=== PATIENT | female | born 1960 | race Caucasian/White ===

== ENCOUNTER 2021-08-12 13:08 | Emergency (ER) | payer OTHER ==
[2021-08-12] MEDS ORDERED: TYLENOL 325 MG PO ONE (13:37)
[2021-08-12] MEDS ORDERED: TYLENOL 325 MG ONE (13:44)
--- NOTE | 2021-08-12 14:11 | XRAY ---
Indication: Fracture. S/P fall Comparison: None 3 view right knee demonstrates moderate tricompartmental degenerative changes, small nonspecific effusion, and 6 mm anterior patella soft tissue calcified granuloma. No other bony, articular, or soft tissue abnormalities.
--- NOTE | 2021-08-12 14:11 | XRAY ---
Indication: Fracture. S/P fall. Comparison: None 3 view right elbow demonstrates small coronoid process spurring. No other bony, articular, or soft tissue abnormalities.
--- NOTE | 2021-08-12 14:12 | XRAY ---
Indication: Fracture. Status post fall. Comparison: None 3 view left knee demonstrates minimal medial joint space narrowing/spurring and tiny patella spurring. No other bony, articular, or soft tissue abnormalities.
--- NOTE | 2021-08-12 14:32 | ERPHSYRPT ---
- History of Present Illness Time Seen by Provider: 08/12/21 13:20 Source: patient Exam Limitations: no limitations Patient Subjective Stated Complaint: Fall-july knee pain and right elbow pain Triage Nursing Assessment: Patient brought back to ED via EMS and transferred to bed with assist of 4. Patient A+O X3. Patient's skin pink, warm and dry. Patient complains of fall prior to coming into ED. Patient states her feet got caught in a blanket causing her to fall and land on her knees. Patient complains of july knee pain and right elbow pain. Small abrasion noted to right elbow. Physician History: Patient is a 61-year-old female presents to our ED via EMS for evaluation of bilateral knee and right elbow pain. Patient states she was getting up to walk when her legs became entangled in her blanket causing her to fall. The fall was not associated with any neuro or cardiovascular symptomology. No chest pain or shortness of breath. No nausea vomiting or diaphoresis. No numbness tingling or weakness. Patient complains of pain to both knees and right elbow. Pain described as a ache that is constant. Pain improved with rest. No other injuries reported. No BHT or LOC. No neck pain. Cervical spine cleared clinically. Patient states she lives alone however receives home health visitations. Timing/Duration: today Severity: mild Modifying Factors: Improves With: nothing Associated Symptoms: denies symptoms Allergies/Adverse Reactions: No Known Drug Allergies Allergy (Unverified 08/12/21 13:13) Home Medications: Dapagliflozin/Metformin HCl [Xigduo Xr 10 mg-1,000 mg Tab] 1 tab PO DAILY 08/12/21 [History] Hx Influenza Vaccination/Date Given: No Hx Pneumococcal Vaccination/Date Given: No Immunizations Up to Date: Yes Travel Risk - International Travel Have you traveled outside of the country in past 3 weeks: No - Coronavirus Screening Are you exhibiting any of the following symptoms?: No - Vaccine Status Have you recieved a Covid-19 vaccination: No - Review of Systems Constitutional: No Symptoms, No Fever, No Chills Eyes: No Symptoms Ears, Nose, & Throat: No Symptoms Respiratory: No Symptoms, No Cough, No Dyspnea Cardiac: No Symptoms, No Chest Pain, No Edema, No Syncope Abdominal/Gastrointestinal: No Symptoms, No Abdominal Pain, No Nausea, No Vo miting, No Diarrhea Genitourinary Symptoms: No Symptoms, No Dysuria Musculoskeletal: No Symptoms, No Back Pain, No Neck Pain Skin: No Symptoms, No Rash Neurological: No Symptoms, No Dizziness, No Focal Weakness, No Sensory Changes Psychological: No Symptoms Endocrine: No Symptoms Hematologic/Lymphatic: No Symptoms Immunological/Allergic: No Symptoms All Other Systems: Reviewed and Negative - Past Medical History Pertinent Past Medical History: Yes Neurological History: No Pertinent History ENT History: No Pertinent History Cardiac History: Hypertension Respiratory History: No Pertinent History Endocrine Medical History: Diabetes Type II Musculoskeletal History: No Pertinent History GI Medical History: No Pertinent History History: No Pertinent History Psycho-Social History: No Pertinent History Female Reproductive Disorders: No Pertinent History - Past Surgical History Past Surgical History: No Neuro Surgical History: No Pertinent History Cardiac: No Pertinent History Respiratory: No Pertinent History Gastrointestinal: No Pertinent History Genitourinary: No Pertinent History Musculoskeletal: No Pertinent History Female Surgical History: No Pertinent History - Social History Smoking Status: Never smoker Exposure to second hand smoke: No Drug Use: none Patient Lives Alone: Yes - Female History Hx Now: No - Nursing Vital Signs Nursing Vital Signs: Initial Vital Signs Temperature 96.3 F 08/12/21 13:14 Pulse Rate 104 H 08/12/21 13:14 Respiratory Rate 18 08/12/21 13:14 Blood Pressure 100/72 08/12/21 13:14 O2 Sat by Pulse Oximetry 96 08/12/21 13:14 Pain Scale Pain Intensity 9 - Physical Exam General Appearance: no apparent distress, alert Eye Exam: PERRL/EOMI, eyes nml inspection Ears, Nose, Throat Exam: normal ENT inspection, TMs normal, pharynx normal, moist mucous membranes Neck Exam: normal inspection, non-tender, supple, full range of motion Respiratory Exam: normal breath sounds, lungs clear, airway intact, No respiratory distress Cardiovascular Exam: regular rate/rhythm, normal heart sounds, normal peripheral pulses Gastrointestinal/Abdomen Exam: soft, normal bowel sounds, No tenderness, No mass Back Exam: normal inspection, normal range of motion, No CVA tenderness, No vertebral tenderness Extremity Exam: normal inspection, normal range of motion, other (Abrasion to right elbow) Neurologic Exam: alert, oriented x 3, cooperative, normal mood/affect, nml cerebellar function, nml station & gait, sensation nml, No motor deficits Skin Exam: normal color, warm, dry, No rash Lymphatic Exam: No adenopathy SpO2 Interpretation: normal SpO2: 96 O2 Delivery: Room Air - Course Nursing assessment & vital signs reviewed: Yes - Radiology Exams Elbow X-ray Interpretation: Teleradiologist Report (3 views right elbow demonstrate small coronoid process spurring. No other bony articular or soft tissue abnormalities.) Knee X-ray Interpretation: Teleradiologist Report (3 views right knee demonstrates moderate tricompartmental degenerative arthritis small nonspecific effusion and a 6 mm anterior patellar soft tissue calcified granuloma. No other bony articular or soft tissue abnormalities) Other X-ray Interpretation: Teleradiologist Report (X-ray left knee demonstrates minimal medial joint space narrowing and tiny patellar spurring. No other bony articular or soft tissue abnormalities.) Ordered Tests: Active Orders 24 hr Category Date Time Status ELBOW (MINIMUM 3 VIEWS) Stat Exams 08/12/21 13:35 Completed KNEE (1 OR 2 VIEW) Stat Exams 08/12/21 13:34 Completed KNEE (1 OR 2 VIEW) Stat Exams 08/12/21 13:34 Completed Medication Summary Discontinued Medications Generic Name Dose Route Start Last Admin Trade Name Markq PRN Reason Stop Dose Admin Acetaminophen 975 mg 08/12/21 13:37 08/12/21 13:48 Acetaminophen 325 Mg Tablet PO 08/12/21 13:38 975 mg STAT ONE Administration Acetaminophen Confirm 08/12/21 13:44 Acetaminophen 325 Mg Tablet Administered 08/12/21 13:45 Dose 975 mg .ROUTE .STK-MED ONE - Progress Progress: improved Progress Note: Patient reassessed. Pain improved. Patient ambulated in her room. Patient appears to be functioning well per RN. Patient states he is ready for discharge. X-rays negative for fracture dislocations. No soft tissue abnormalities. Patient's fall was mechanical. No indication for further work- up. Will discharge home. Patient voices no other complaint or concerns at this time. Portions of this note were created with voice recognition technology. There may be grammatical, spelling, punctuation or sound alike errors 08/12/21 14:43 Counseled pt/family regarding: diagnosis, need for follow-up, rad results - Departure Departure Disposition: Home Clinical Impression: Fall, Elbow contusion, Arthritis of knee, right, Knee effusion, right, Calcified granuloma of knee, Abrasion of right elbow Condition: Stable Critical Care Time: No Referrals: MIK DAVIS MD [NON-STAFF Y W/O PRIVILEGES] - Follow up/PCP as directed Additional Instructions: Discharge/Care Plan AHY ESQUIVEL was seen on 08/12/21 in the Emergency Room. The patient was counseled regarding Diagnosis,Lab results, Imaging studies, need for follow up and when to return to the Emergency Room. Prescriptions given: Discharge Note I have spoken with the patient and/or caregivers. I have explained the patient's condition, diagnosis and treatment plan based on the information available to me at this time. I have answered the patient's and/or caregiver's questions and addressed any concerns. The patient and/or caregivers have as good understanding of the patient's diagnosis, condition and treatment plan as can be expected at this point. The vital signs have been stable. The patient's condition is stable and appropriate for discharge from the emergency department. The patient will pursue further outpatient evaluation with the primary care physician or other designated or consulting physician as outlined in the discharge instructions. The patient and/or caregivers are agreeable to this plan of care and follow-up instructions have been explained in detail. The patient and/or caregivers have received these instruction. The patient/and or caregivers are aware that any significant change in condition or worsening of symptoms should prompt an immediate return to this or the closest emergency department or call 911.
[2021-08-12 14:40] VITALS: BP 90/56; PULSE 85
[2021-08-12 14:46] VITALS: O2SAT 96
== END 2021-08-12 14:55 | disposition home or self-care (01) ==
LOC: ED 13:08
DX: S50.01XA Contusion of right elbow, initial encounter (principal); W01.0XXA Fall on same level from slipping, tripping and stumbling without subsequent striking against object, initial encounter; M25.461 Effusion, right knee; M17.11 Unilateral primary osteoarthritis, right knee; L92.8 Other granulomatous disorders of the skin and subcutaneous tissue; S50.311A Abrasion of right elbow, initial encounter; I10 Essential (primary) hypertension; E11.9 Type 2 diabetes mellitus without complications; Z79.84 Long term (current) use of oral hypoglycemic drugs
CPT/HCPCS: 73080; 73560; 99284; A9270-GY